=== PATIENT | male | born 2000 | race Caucasian/White ===

== ENCOUNTER → 2023-07-30 12:58 | Outpatient (CLI) | payer OTHER, SELFPAY ==
--- NOTE | 2023-07-30 13:13 | ECG_ITS ---
APPROVED REPORT Exam: Resting ECG HR:91 bpm ECG Measurements Heart Rate 91 AXES NM 163 P 85 QRSd 97 QRS 83 QT 339 T 41 QTc 388 Conclusion SINUS RHYTHM WITH SINUS ARRHYTHMIA NORMAL ECG UNCONFIRMED REPORT Electronically signed by : Sonny Powell MD 07/30/2023 17:28:48
--- NOTE | 2023-07-30 13:27 | XR_ITS ---
FINAL REPORT CLINICAL HISTORY: left chest pain FINDINGS: PA and lateral views of the chest are obtained. There is no prior exam for comparison. The cardiac and mediastinal silhouettes are within normal limits. The lungs are clear. There is no pleural effusion, pneumothorax, or acute osseous abnormality. IMPRESSION: No radiographic evidence of acute cardiac or pulmonary disease. Reviewed, Interpreted and Dictated by Liat Lieberman MD Transcribed by Naima Fraser Authenticated and [facility]
[2023-07-30 13:36] LABS: Basophils % 0.5 % (0.1-2.0); Eosinophils % 0.4 % (0.1-12.0); Hematocrit 44.6 % (42.0-52.0); Hemoglobin 16.2 g/dL (14.1-18.0); Lymphocytes # 1.2 K/mm3 (0.7-4.5); Lymphocytes % 14.1 % (10-50); Mean Corpuscular HGB Conc 36.3 g/dL (31.8-35.4); Mean Corpuscular Hemoglobin 31.4 pg (27.0-31.2); Mean Corpuscular Volume 86.5 fl (80-94); Mean Platelet Volume 8.6 fl (7.4-10.4); Monocytes # 0.4 K/mm3 (0.1-1.0); Monocytes % 5.2 % (1.7-9.3); Neutrophils # 6.6 K/mm3 (1.8-7.8); Neutrophils % 79.8 % (37.0-80.0); Platelet Count 222 K/mm3 (142-424); Red Blood Count 5.16 M/mm3 (4.60-6.20); Red Cell Distribution Width 12.5 % (11.5-17.5); White Blood Count 8.2 K/mm3 (4.8-10.8)
[2023-07-30 14:03] LABS: Alanine Aminotransferase 131 U/L (12-78); Albumin Level 5.4 g/dl (3.5-5.0); Albumin/Globulin Ratio 1.5 (1.1-1.8); Alkaline Phosphatase 40 U/L (38-126); Anion Gap 15.5 mEq/L (5-15); Aspartate Amino Transferase 65 U/L (17-59); Bilirubin,Total 1.3 mg/dl (0.2-1.3); Blood Urea Nitrogen 15 mg/dl (9-20); Calcium 10.3 mg/dl (8.4-10.2); Carbon Dioxide 29 mmol/L (22.0-30.0); Chloride 98 mmol/L (98-107); Chol/HDL Ratio 3.8 (1-3.5); Cholesterol 219 mg/dl (140-200); Estimated Glomerular Filt Rate 118 ml/min (>60); GFR (African American) 143 ML/MIN (>60); Globulin 3.5 g/dL (1.3-3.2); Glucose 127 mg/dl (74-100); HDL Cholesterol 58 mg/dl (40-60); Potassium 4.5 mmoL/L (3.5-5.1); Sodium 138 mmol/L (136-145); Total Protein,Serum 8.9 g/dl (6.3-8.2); Triglycerides 102 mg/dl (30-150); VLDL Cholesterol 20 mg/dL (0-40)
[2023-07-30 14:14] LABS: Direct LDL Cholesterol 129.11 mg/dL (100-129)
[2023-07-30 14:33] LABS: Thyroid Stimulating Hormone 0.91 uIU/mL (0.465-4.68)
[2023-07-30 14:36] LABS: Troponin I < 0.01 ng/ml (0.00-0.034)
[2023-07-30 16:19] LABS: Creatinine,Urine Random 96 mg/dL (Not Estab.); Microalbumin/Creatinine Ratio 8.8
[2023-07-30 23:06] LABS: Hemoglobin A1C 5.3 % (4.0-6.0)
== END ==
PROVIDERS: PCP Nurse Practitioner; Visit Provider Nurse Practitioner
DX: R07.9 Chest pain, unspecified (principal); I10 Essential (primary) hypertension; Z79.899 Other long term (current) drug therapy
CPT/HCPCS: 36415; 71046; 80050; 80053; 80061; 82043; 82570; 83036; 84443; 84484; 85025; 93005

== ENCOUNTER → 2023-08-06 09:40 | Outpatient (CLI) | payer OTHER, SELFPAY ==
--- NOTE | 2023-08-06 09:42 | CA_ITS ---
FINAL REPORT CLINICAL HISTORY: HTN COMPARISON: None FINDINGS: Aorta velocity: 237 cm/sec Right kidney: 11.4 cm. No evidence of hydronephrosis or mass. Right intrarenal RI: 0.7 Right renal artery velocity: 220 cm/sec. Right RAR (Renal artery-Aortic Ratio): 0.9 Left Kidney: 13.4 cm. No evidence of hydronephrosis or mass. Left intrarenal RI: 0.7 Left renal artery velocity: 224 cm/sec. Left RAR (Renal Artery-Aortic Ratio): IMPRESSION: No evidence of significant renal artery stenosis. While the renal artery velocities are over 180 cm/s, the aortic velocity is 237.4 cm/s, and the resistive indices and renal artery to aortic ratios are normal. CT angiogram or postcontrast MR angiogram would be more sensitive for evaluation of possible renal artery stenosis. Reviewed, Interpreted and Dictated by Jose Hwang MD Transcribed by Anya Mccormick Authenticated and [facility]
== END ==
PROVIDERS: PCP Nurse Practitioner; Visit Provider Nurse Practitioner
DX: I10 Essential (primary) hypertension (principal)
CPT/HCPCS: 93976

== ENCOUNTER 2023-10-21 19:12 | Outpatient (CLI) | payer OTHER, SELFPAY ==
[2023-10-21 18:25] LABS: Basophils % 0.8 % (0.1-2.0); Eosinophils # 0.1 K/mm3 (0.0-0.4); Eosinophils % 1.8 % (0.1-12.0); Hematocrit 48.2 % (42.0-52.0); Hemoglobin 16.4 g/dL (14.1-18.0); Lymphocytes # 1.5 K/mm3 (0.7-4.5); Lymphocytes % 27.7 % (10-50); Mean Corpuscular HGB Conc 34.1 g/dL (31.8-35.4); Mean Corpuscular Hemoglobin 30.8 pg (27.0-31.2); Mean Corpuscular Volume 90.4 fl (80-94); Mean Platelet Volume 9.9 fl (7.4-10.4); Monocytes # 0.5 K/mm3 (0.1-1.0); Monocytes % 8.2 % (1.7-9.3); Neutrophils # 3.4 K/mm3 (1.8-7.8); Neutrophils % 61.5 % (37.0-80.0); Platelet Count 224 K/mm3 (142-424); Red Blood Count 5.34 M/mm3 (4.60-6.20); Red Cell Distribution Width 12.6 % (11.5-17.5); White Blood Count 5.5 K/mm3 (4.8-10.8)
[2023-10-21 18:32] LABS: Alanine Aminotransferase 91 U/L (12-78); Albumin Level 4.9 g/dl (3.5-5.0); Albumin/Globulin Ratio 1.5 (1.1-1.8); Alkaline Phosphatase 46 U/L (38-126); Anion Gap 12.9 mEq/L (5-15); Aspartate Amino Transferase 48 U/L (17-59); Bilirubin,Total 1.1 mg/dl (0.2-1.3); Blood Urea Nitrogen 15 mg/dl (9-20); Calcium 9.9 mg/dl (8.4-10.2); Carbon Dioxide 29 mmol/L (22.0-30.0); Chloride 102 mmol/L (98-107); Chol/HDL Ratio 4.2 (1-3.5); Cholesterol 200 mg/dl (140-200); Estimated Glomerular Filt Rate 103 ml/min (>60); GFR (African American) 124 ML/MIN (>60); Globulin 3.2 g/dL (1.3-3.2); Glucose 107 mg/dl (74-100); HDL Cholesterol 48 mg/dl (40-60); Potassium 4.9 mmoL/L (3.5-5.1); Sodium 139 mmol/L (136-145); Total Protein,Serum 8.1 g/dl (6.3-8.2); Triglycerides 89 mg/dl (30-150); VLDL Cholesterol 18 mg/dL (0-40)
[2023-10-21 19:38] LABS: Hemoglobin A1C 5.1 % (4.0-6.0)
== END 2023-10-21 23:59 ==
LOC: LAB.DROPOF 19:12
PROVIDERS: PCP Nurse Practitioner; Visit Provider Nurse Practitioner
DX: I10 Essential (primary) hypertension (principal)
CPT/HCPCS: 80053; 80061; 83036; 85025